=== PATIENT | male | born 1980 | race Hispanic/Latino ===

== ENCOUNTER 2022-09-22 06:02 | Emergency (ER) | payer BC, SELFPAY ==
[2022-09-22] MEDS ORDERED: IBUPROFEN 400 MG TAB ONE (07:33)
[2022-09-22 08:34] LABS: SARS-COV-2 RT PCR NEGATIVE (NEGATIVE)
--- NOTE | 2022-09-22 08:47 | EDPHYS ---
Physician Documentation [facility] Name: Chidi Esquivel Age: 42 yrs Sex: Male : 1980 Arrival Date: 09/22/2022 Time: 06:10 Bed 17 Private MD: ED Physician Jhonatan Navarro HPI: 09/22 08:04 This 42 yrs old Male presents to ER via Ambulatory with complaints of Fever, kdr Headache. 08:06 Patient states that he awoke this morning with fever. He measured fever to be 101. He kdr is concerned that he may have the flu. He also has had headaches and fatigue with some cough and congestion since Wednesday. He is otherwise in his usual state of health and is not otherwise acutely ill or requiring immediate intervention. 09:41 Onset: The symptoms/episode began/occurred yesterday. Severity of symptoms: At their kdr worst the symptoms were mild in the emergency department the symptoms are unchanged. The patient has not experienced similar symptoms in the past. The patient has not recently seen a physician. Historical: - Allergies: 06:35 No Known Allergies; aa9 - Home Meds: 06:35 atorvastatin oral [Active]; carvedilol oral [Active]; Lisinopril Oral [Active]; aspirin aa9 81 mg Oral cap [Active]; - PMHx: 06:35 Hypercholesterolemia; Hypertensive disorder; Irregular heart rate; aa9 - PSHx: 06:35 None; aa9 - Immunization history:: Client reports having NOT received the Covid vaccine. - Social history:: Smoking status: Patient reports the use of cigarette tobacco products, smokes one pack cigarettes per day. ROS: 09:41 Constitutional: Negative for chills, and weight loss. The patient has had general kdr malaise and arthralgias/myalgias. Patient also had low-grade fever prior to arrival. He has not taking any antipyretics since noting the fever and arriving at the ED Eyes: Negative for injury, pain, redness, and discharge, Neck: Negative for injury, pain, and swelling, Cardiovascular: Negative for chest pain, palpitations, and edema, Abdomen/GI: Negative for abdominal pain, nausea, vomiting, diarrhea, and constipation, Back: Negative for injury and pain, MS/Extremity: Negative for injury and deformity, Skin: Negative for injury, rash, and discoloration, Neuro: Negative for headache, weakness, numbness, tingling, and seizure activity. Psych: Negative for depression, anxiety, suicide ideation, homicidal ideation, and hallucinations, Allergy/Immunology: Negative for hives, rash, and allergies, Endocrine: Negative for neck swelling, polydipsia, polyuria, polyphagia, and marked weight changes, Hematologic/Lymphatic: Negative for swollen nodes, abnormal bleeding, and unusual bruising. 09:41 Respiratory: Positive for cough, dyspnea on exertion, shortness of breath. Exam: 09:41 Constitutional: This is a well developed, well nourished patient who is awake, alert, kdr and in no acute distress. Head/Face: Normocephalic, atraumatic. Eyes: Pupils equal round and reactive to light, extra-ocular motions intact. Lids and lashes normal. Conjunctiva and sclera are non-icteric and not injected. Cornea within normal limits. Periorbital areas with no swelling, redness, or edema. Neck: Trachea midline, no thyromegaly or masses palpated, and no cervical lymphadenopathy. Supple, full range of motion without nuchal rigidity, or vertebral point tenderness. No Meningismus. Chest/axilla: Normal chest wall appearance and motion. Nontender with no deformity. No lesions are appreciated. Cardiovascular: Regular rate and rhythm with a normal S1 and S2. No gallops, murmurs, or rubs. Normal PMI, no JVD. No pulse deficits. Respiratory: Lungs have equal breath sounds bilaterally, clear to auscultation and percussion. No rales, rhonchi or wheezes noted. No increased work of breathing, no retractions or nasal flaring. Abdomen/GI: Soft, non-tender, with normal bowel sounds. No distension or tympany. No guarding or rebound. No evidence of tenderness throughout. Back: No spinal tenderness. No costovertebral tenderness. Full range of motion. Skin: Warm, dry with normal turgor. Normal color with no rashes, no lesions, and no evidence of cellulitis. MS/ Extremity: Pulses equal, no cyanosis. Neurovascular intact. Full, normal range of motion. Neuro: Awake and alert, GCS 15, oriented to person, place, time, and situation. Cranial nerves II-XII grossly intact. Motor strength 5/5 in all extremities. Sensory grossly intact. Cerebellar exam normal. Normal gait. Psych: Awake, alert, with orientation to person, place and time. Behavior, mood, and affect are within normal limits. Vital Signs: 06:34 BP 113 / 65; Pulse 95; Resp 22 S; Temp 100.2(O); Pulse Ox 96% on R/A; Weight 99.79 kg aa9 (R); Height 5 ft. 8 in. (172.72 cm) (R); 07:15 BP 116 / 72; Pulse 90; Resp 19; Pulse Ox 98% on R/A; vg1 08:46 BP 92 / 61; Pulse 92; Resp 18; Temp 99.6; Pulse Ox 99% on R/A; vg1 06:34 Body Mass Index 33.45 (99.79 kg, 172.72 cm) aa9 MDM: 08:47 Patient medically screened. kdr 09:44 Data reviewed: vital signs, nurses notes, lab test result(s), radiologic studies. kdr Counseling: I had a detailed discussion with the patient and/or guardian regarding: the historical points, exam findings, and any diagnostic results supporting the discharge/admit diagnosis, lab results, radiology results, the need for outpatient follow up. 09/22 06:58 Order name: COVID-19/FLU A+B; Complete Time: 08:45 rt Administered Medications: 07:32 Drug: Motrin (ibuprofen) 800 mg Route: PO; vg1 Disposition Summary: 09/22/22 08:47 Discharge Ordered Location: Home kdr Problem: new kdr Symptoms: have improved kdr Condition: Stable kdr Diagnosis - Influenza A kdr - Fever, unspecified kdr - Viral infection, unspecified kdr Followup: kdr - With: Private Physician - When: 2 - 3 days - Reason: If symptoms return, Further diagnostic work-up, Recheck today's complaints, Continuance of care, Re-evaluation by your physician Discharge Instructions: - Discharge Summary Sheet kdr - Viral Respiratory Infection kdr - Influenza, Adult, [id number] kdr - Fever, Adult, [id number] kdr Forms: - Medication Reconciliation Form kdr - Thank You Letter kdr - Antibiotic Education kdr Prescriptions: - Ibuprofen 800 mg Oral Tablet - take 1 tablet by ORAL route every 8 hours As needed take with food; 12 tablet; kdr Refills: 0, Product Selection Permitted - Tamiflu 75 mg Oral Capsule - take 1 tablet by ORAL route every 12 hours for 5 days; 10 tablet; Refills: 0, kdr Product Selection Permitted Signatures: Dispatcher [employer] Jhonatan Bond MD MD kdr Garcia, Victoria, RN RN vg1 Kristen Vasquez RN RN aa9
--- NOTE | 2022-09-22 08:47 | ER ---
Nurse's Notes [facility] Name: Chidi Esquivel Age: 42 yrs Sex: Male : 1980 Arrival Date: 09/22/2022 Time: 06:10 Bed 17 Private MD: Diagnosis: Influenza A;Fever, unspecified;Viral infection, unspecified Presentation: 09/22 06:34 Chief complaint: Patient states: i woke up this morning with a 101 fever, I think I aa9 have the flu, I have had headaches, fatigue, stuffy nose and a cough since Wednesday. Coronavirus screen: Vaccine status: Patient reports being unvaccinated. Ebola Screen: No symptoms or risks identified at this time. Initial Sepsis Screen: Does the patient meet any 2 criteria? No. Patient's initial sepsis screen is negative. Does the patient have a suspected source of infection? No. Patient's initial sepsis screen is negative. Risk Assessment: Do you want to hurt yourself or someone else? Patient reports no desire to harm self or others. Onset of symptoms was September 22, 2022. 06:34 Method Of Arrival: Ambulatory aa9 06:34 Acuity: ISH 4 aa9 Triage Assessment: 06:36 Headache History: Denies prior headaches. General: Appears uncomfortable, Behavior is aa9 calm, cooperative, appropriate for age. Pain: Complains of pain in headache Pain currently is 7 out of 10 on a pain scale. Pain began 2-3 days ago. Also complains of no other associated symptoms. Neuro: Level of Consciousness is awake, alert, obeys commands, Oriented to person, place, time, situation. Respiratory: Airway is patent Respiratory effort is even, unlabored. GI: No signs and/or symptoms were reported involving the gastrointestinal system. : No signs and/or symptoms were reported regarding the genitourinary system. Derm: Skin is intact, is healthy with good turgor. Musculoskeletal: No signs and/or symptoms reported regarding the musculoskeletal system. Historical: - Allergies: 06:35 No Known Allergies; aa9 - Home Meds: 06:35 atorvastatin oral [Active]; carvedilol oral [Active]; Lisinopril Oral [Active]; aspirin aa9 81 mg Oral cap [Active]; - PMHx: 06:35 Hypercholesterolemia; Hypertensive disorder; Irregular heart rate; aa9 - PSHx: 06:35 None; aa9 - Immunization history:: Client reports having NOT received the Covid vaccine. - Social history:: Smoking status: Patient reports the use of cigarette tobacco products, smokes one pack cigarettes per day. Screenin:15 Abuse screen: Denies threats or abuse. Nutritional screening: No deficits noted. vg1 Tuberculosis screening: No symptoms or risk factors identified. Fall Risk None identified. Assessment: 07:15 General: Appears in no apparent distress. comfortable, Behavior is calm, cooperative. vg1 Pain: Denies pain. Neuro: Level of Consciousness is awake, alert, obeys commands, Oriented to person, place, time, situation. Cardiovascular: Patient's skin is warm and dry. Respiratory: Airway is patent Respiratory effort is even, unlabored, Breath sounds are clear bilaterally. GI: No signs and/or symptoms were reported involving the gastrointestinal system. : No signs and/or symptoms were reported regarding the genitourinary system. EENT: No signs and/or symptoms were reported regarding the EENT system. Derm: Skin is pink, warm \T\ dry. Musculoskeletal: Circulation, motion, and sensation intact. 07:25 Reassessment: received VO from DR Navarro to administer 800 mg of Motrin PO x1. vg1 Vital Signs: 06:34 BP 113 / 65; Pulse 95; Resp 22 S; Temp 100.2(O); Pulse Ox 96% on R/A; Weight 99.79 kg aa9 (R); Height 5 ft. 8 in. (172.72 cm) (R); 07:15 BP 116 / 72; Pulse 90; Resp 19; Pulse Ox 98% on R/A; vg1 08:46 BP 92 / 61; Pulse 92; Resp 18; Temp 99.6; Pulse Ox 99% on R/A; vg1 06:34 Body Mass Index 33.45 (99.79 kg, 172.72 cm) aa9 ED Course: 06:10 Patient arrived in ED. bp1 06:34 Kristen Vasquez, RN is Primary Nurse. aa9 06:35 Triage completed. aa9 06:37 Arm band placed on. aa9 06:37 Patient has correct armband on for positive identification. Bed in low position. Call aa9 light in reach. Door closed. 07:02 Jhonatan Navarro MD is Attending Physician. kdr 09:16 No provider procedures requiring assistance completed. Patient did not have IV access vg1 during this emergency room visit. Administered Medications: 07:32 Drug: Motrin (ibuprofen) 800 mg Route: PO; vg1 Medication: 06:37 VIS not applicable for this client. aa9 Outcome: 08:47 Discharge ordered by . kdr 09:15 Discharged to home ambulatory. vg1 09:15 Condition: good 09:15 Discharge instructions given to patient, Instructed on discharge instructions, follow up and referral plans. medication usage, Demonstrated understanding of instructions, follow-up care, medications, Prescriptions given X 2. 09:16 Patient left the ED. vg1 Signatures: Jhonatan Navarro MD MD kdr Garcia, Victoria, RN RN vg1 Belen Seals Aylin, RN RN aa9
[2022-09-22 12:02] VITALS: BP 92/61; TEMP 99.6; O2SAT 99
== END 2022-09-22 09:16 | disposition home or self-care (01) ==
LOC: ER 06:02
DX: J10.1 Influenza due to other identified influenza virus with other respiratory manifestations (principal); I10 Essential (primary) hypertension; F17.210 Nicotine dependence, cigarettes, uncomplicated; Z20.822 Contact with and (suspected) exposure to COVID-19
CPT/HCPCS: 0240U; 99283